=== PATIENT | female | born 1965 | race Caucasian/White ===

== ENCOUNTER → 2017-12-28 16:10 | Outpatient (CLI) | payer OTHER, SELFPAY ==
--- NOTE | 2017-12-28 16:10 | DT_ITS ---
This patient was seen during an EMR downtime December 28, 2017 - January 04, 2018. This patient may have a combination of paper and electronic documentation or all paper documentation. All documentation is viewable within the e-chart portion of [employer] for each patient visit.
[2018-01-03 03:39] LABS: Hematocrit 44.2 % (37-47); Hemoglobin 14.4 g/dl (12.0-15.0); Mean Corp Hgb Conc 32.6 g/gl (32-36); Mean Corpuscular Hgb 28.9 pg (27.0-32.0); Mean Corpuscular Volume 88.8 fL (81-99); Mean Platelet Vol. 10.2 fl (6.2-12.0); Platelet Count 290 K/mm3 (150-450); RBC Distribution Width CV 16.4 % (11.6-14.6); RBC Distribution Width SD 52.9 fl (35.1-43.9); Red Blood Count 4.98 M/mm3 (4.2-5.4)
[2018-01-03 03:40] LABS: Absolute Lymphocyte Count 3.06 X10^3/ul (0.83-4.51); Absolute Neutrophil Count 3.9 X10^3/uL (2.0-7.7); Basophil# 0.03 X10^3/uL; Basophil% 0.4 % (0-1); Eosinophil# 0.23 X10^3/uL; Eosinophils% 2.9 % (0-5); Lymphocyte # 3.06 X10^3/ul (4.0); Lymphocyte % 38.3 % (19-41); Monocyte# 0.82 X10^3/uL; Monocyte% 10.3 % (0-10); Neutrophil # 3.85 X10^3/uL (2.7-7.7); POSITIVE COUNT NO; POSITIVE DIFFERENTIAL NO; POSITIVE MORPHOLOGY NO
[2018-01-03 03:41] LABS: BUN 9 mg/dL (7-18); BUN/Creat Ratio 11.5 RATIO (10-20); Creatinine, Serum 0.78 mg/dL (0.55-1.02); EST Glomerular Filtration Rate 82 mL/min (>60); Est Glom Filt Rate - Afr Amer 99 mL/min (>60); Glucose 84 mg/dL (74-106)
[2018-01-03 03:43] LABS: Calcium,Total 8.9 mg/dL (8.5-10.1)
[2018-01-03 03:45] LABS: Anion Gap 9 (5-15); Chloride 104 mmol/L (98-107); Potassium 3.2 mmol/L (3.5-5.1); Sodium Level 142 mmol/L (136-145)
== END ==
PROVIDERS: Family Provider Family Medicine; PCP Family Medicine; Visit Provider Family Medicine
DX: I10 Essential (primary) hypertension (principal); R60.0 Localized edema
CPT/HCPCS: 36415; 80048; 80061; 84443; 85025

== ENCOUNTER → 2018-01-21 08:01 | Outpatient (CLI) | payer OTHER, SELFPAY ==
[2018-01-21 10:44] LABS: Anion Gap 6 (5-15); BUN 8 mg/dL (7-18); BUN/Creat Ratio 9.3 RATIO (10-20); Calcium,Total 8.6 mg/dL (8.5-10.1); Chloride 107 mmol/L (98-107); Creatinine, Serum 0.86 mg/dL (0.55-1.02); EST Glomerular Filtration Rate 74 mL/min (>60); Est Glom Filt Rate - Afr Amer 89 mL/min (>60); Glucose 90 mg/dL (74-106); Potassium 3.6 mmol/L (3.5-5.1); Sodium Level 140 mmol/L (136-145)
== END ==
PROVIDERS: Family Provider Family Medicine; PCP Family Medicine; Visit Provider Family Medicine
DX: I10 Essential (primary) hypertension (principal)
CPT/HCPCS: 36415; 80048

== ENCOUNTER → 2018-04-02 11:21 | Outpatient (CLI) | payer SELFPAY | PROVIDERS: Family Provider Nurse Practitioner; PCP Nurse Practitioner; Visit Provider Nurse Practitioner | DX: M79.605 Pain in left leg (principal) | CPT/HCPCS: 93971 ==

== ENCOUNTER → 2018-04-09 12:54 | Outpatient (CLI) | payer OTHER, SELFPAY ==
--- NOTE | 2018-04-09 12:56 | RAD_ITS ---
STUDY: X-RAY -LEFT FOOT CLINICAL: Left leg and foot swelling. TECHNIQUE: 3 view(s) of the foot. COMPARISON: None. FINDINGS: There is a small posterior calcaneal enthesophyte. Normal visualized subtalar, talonavicular, calcaneocuboid, tarsal and tarsometatarsal articulations. Normal metatarsi. Normal metatarsophalangeal joint of the great toe. Normal tibial and fibular sesamoid bones. There is a bipartite tibial sesamoid. Normal interphalangeal joint of the great toe. Normal phalanges of the great toe. Normal second through fifth metatarsophalangeal joints. Normal interphalangeal joints and phalanges of the lesser toes. There is soft tissue swelling. RAD/Foot min 3 Views IMPRESSION: Soft tissue swelling. Small calcaneal enthesophyte. Electronically Signed: Fredrick Roberson MD at 15:37 EDT Tel , Service support ,
--- NOTE | 2018-04-09 12:56 | RAD_ITS ---
STUDY: X-RAY - LEFT ANKLE REASON FOR EXAM: Left leg swelling. TECHNIQUE: 3 view(s) of the ankle. COMPARISON: None. FINDINGS: Normal visualized distal tibia and fibula. Normal medial and lateral malleoli. Normal tibiotalar articulation and ankle mortise. There is a small posterior calcaneal enthesophyte. The visualized subtalar, talonavicular, calcaneocuboid and tarsal articulations are normal. There is soft tissue swelling of the left lower leg. RAD/Ankle min 3 Views IMPRESSION: Soft tissue swelling. Small calcaneal enthesophyte. Electronically Signed: Fredrick Roberson MD at 15:37 EDT Tel , Service support ,
--- NOTE | 2018-04-09 12:56 | RAD_ITS ---
STUDY: X-RAY - LEFT KNEE REASON FOR EXAM: Left leg swelling. TECHNIQUE: 4 view(s) of the knee. COMPARISON: None. FINDINGS: Normal visualized distal femur. Normal visualized proximal tibia and fibula. Normal proximal tibiofibular articulation. Normal medial femorotibial compartment. Normal lateral femorotibial compartment. Normal patellofemoral articulation. There is soft tissue swelling in the left lower leg. RAD/Knee 4 or More Views IMPRESSION: Soft tissue swelling. Otherwise, unremarkable x-ray examination of the left knee. Electronically Signed: Fredrick Roberson MD at 15:30 EDT Tel , Service support ,
== END ==
PROVIDERS: Family Provider Nurse Practitioner; PCP Nurse Practitioner; Visit Provider Nurse Practitioner
DX: M79.89 Other specified soft tissue disorders (principal)
CPT/HCPCS: 73564; 73610; 73630

== ENCOUNTER 2019-03-10 15:43 | Emergency (ER) | payer MEDICAID, SELFPAY ==
[2019-03-10 15:44] VITALS: BP 133/77; PULSE 93; RESP 18; TEMP 36.6; O2SAT 100; BMI 19.4
--- NOTE | 2019-03-10 16:00 | EKG12_ITS ---
Test Reason : Blood Pressure : / mmHG Vent. Rate : 077 BPM Atrial Rate : 077 BPM P-R Int : 152 ms QRS Dur : 086 ms QT Int : 374 ms P-R-T Axes : 082 053 071 degrees QTc Int : 423 ms Normal sinus rhythm Normal ECG Confirmed by TOM SILVESTRE, JOSEPH ([id number]), acquisition editor OSWALD BARRAZA ([id number]) on 03/14/2019 1:06:20 PM Referred By: MARLEY Confirmed By:FCO SANTOS MD
--- NOTE | 2019-03-10 16:00 | CT_ITS ---
STUDY: CT BRAIN WITHOUT CONTRAST REASON FOR EXAM: Female, 54 years old. Headache RADIATION DOSAGE (If Supplied By Facility): CTDIvol = ( 44.99 ) mGy, DLP = ( 694.87 ) mGycm TECHNIQUE: Transaxial CT imaging of the brain was performed without administration of intravenous contrast material. Individualized dose optimization techniques were used for this CT. COMPARISON: No relevant priors. FINDINGS: Normal soft tissue structures. Normal calvarium. Normal size ventricles and extra-axial spaces for the patient's age. Normal white matter tracts of the cerebral hemispheres. There are bilateral lacunar infarcts of the basal ganglia and thalami. Normal brainstem. Normal cerebellum. There is no intracranial hemorrhage. There are no findings of an acute ischemic infarction. Normal visualized paranasal sinuses. CT/Brain/Head without Contrast IMPRESSION: Small bilateral lacunar infarcts of the basal ganglia. Otherwise normal. Electronically Signed: Sanya Lino MD at 16:46 EDT , Service support ,
--- NOTE | 2019-03-10 16:08 | ED.VIS.GEN ---
History of Present Illness Chief Complaint: Syncope Narrative: Patient presenting secondary to a near syncopal episode. Patient reports that she was working outdoors today. 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 She states that it was associated with minimal amount of abdominal cramping, as well as an associated headache. Patient states that she then felt numb in her bilateral arms, and felt that her thumbs were twitching. She states she was lightheaded and almost passed out but did not completely pass out. Patient denies that she was having any sort of chest pain or shortness of breath. She denies prior similar episodes of this. She denies any history of DVT or PE or any risk factors of such. Currently the patient states that she just has a mild headache associated with this with no visual changes numbness or weakness. Patient does have an underlying history of hypertension, no history of cardiac arrhythmia. Review of systems otherwise negative. Past Medical History - Allergies and Home Meds Allergies/Adverse Reactions: Allergies No Known Allergies Allergy (Verified 03/10/19 15:47) Primary Care Physician: Maite Hollins NP-C [Primary Care Provider] - Past Medical History: - - Hypertension Lives: Spouse/ Significant Other Smoking Status: Current every day smoker Alcohol: None Drugs: None Review of Systems All systems negative except as indicated Eyes: Denies: Visual changes - bilaterally Cardiovascular: Denies: Chest pain Gastrointestinal: Reports: Nausea. Denies: Vomiting Neurological: Reports: Headache, Parasthesia Physical Exam Vital Signs/Narrative: Vital Signs Temp Pulse Resp BP Pulse Ox 03/10/19 15:44 97.9 F 93 18 133/77 H 100 General: Well nourished, Well developed, No Acute Distress Head: Normocephalic, Atraumatic Eyes: Perrl, EOMI ENT: Moist mucous membranes, No rhinorrhea Neck: Supple, Nontender Cardiovascular: Regular rate, Regular rhythm, No murmurs Respiratory: No distress, CTA bilaterally, Chest nontender Abdomen: Soft, Nontender, Nondistended, Normal bowel sounds Back: Nontender, Normal Inspection Extremities: Nontender, No edema Skin: Normal color, No rash Neurological: Alert, Oriented x3, Cranial nerves II-XII grossly intact, Normal Strength, Normal Sensation Psychological: Normal affect, Normal Mood Diagnostic/Tx/Re-eval - EKG Initial EKG Interpretation: - - Sinus rhythm at [address] segments normal T waves no evidence of acute ischemia or arrhythmia. Normal AK and QTc intervals. - Medical Decision Making Patient presented secondary to a near syncopal episode associated with some overheating. CBC chemistry troponin were unremarkable. CT brain was performed which showed old basal ganglia infarcts but nothing new. Patient's EKG shows no signs of arrhythmia or ischemia. Telemetry monitoring was also negative for any sort of arrhythmia. Patient is negative per the [place] syncope risk scale. Patient likely had an episode where she was overheated. I do not believe that she requires admission or observation. She was given a liter of fluid, had improvement, and was discharged. ED Disposition - Plan for ED Patient: Disposition: Home or Assisted Living Diagnosis: Near syncope Instructions: NEAR SYNCOPE, Vasovagal Referrals: Maite Hollins NP-C [Primary Care Provider] - 1 Week
[2019-03-10] MEDS: 0.9% Normal Saline 1,000 ML 1000 ML IV (16:12)
[2019-03-10 16:20] LABS: Absolute Lymphocyte Count 2.25 X10^3/uL (0.83-4.51); Absolute Neutrophil Count 7.8 X10^3/uL (2.0-7.7); Basophil# 0.03 X10^3/uL; Basophil% 0.3 % (0-1); Eosinophil# 0.12 X10^3/uL; Eosinophils% 1.1 % (0-5); Hematocrit 40.5 % (37-47); Hemoglobin 13.2 g/dL (12.0-15.0); Lymphocyte # 2.25 X10^3/ul (4.0); Lymphocyte % 20.5 % (19-41); Mean Corp Hgb Conc 32.6 g/dL (32-36); Mean Corpuscular Hgb 28.6 pg (27.0-32.0); Mean Corpuscular Volume 87.9 fL (81-99); Monocyte# 0.77 X10^3/uL; NRBC Flagged by Analyzer 0 % (0-5); Neutrophil # 7.79 X10^3/uL (2.7-7.7); Neutrophil % 70.7 % (47-70); Platelet Count 230 K/mm3 (150-450); RBC Distribution Width SD 51.8 fl (35.1-43.9); Red Blood Count 4.61 M/mm3 (4.2-5.4)
[2019-03-10 16:34] LABS: Anion Gap 5 (5-15); BUN 12 mg/dL (7-18); BUN/Creat Ratio 13.5 RATIO (10-20); Calcium,Total 8.7 mg/dL (8.5-10.1); Chloride 109 mmol/L (98-107); Creatinine, Serum 0.89 mg/dL (0.55-1.02); EST Glomerular Filtration Rate 70 mL/min (>60); Est Glom Filt Rate - Afr Amer 85 mL/min (>60); Estimated Creatinine Clearance 60.54 ml/min; Glucose 93 mg/dL (74-106); Potassium 3.7 mmol/L (3.5-5.1); Sodium Level 141 mmol/L (136-145)
[2019-03-10 17:39] VITALS: BP 143/86; PULSE 78; RESP 16; RESP 18; O2SAT 100
== END 2019-03-10 17:40 | disposition home or self-care (01) ==
PROVIDERS: Emergency Provider Emergency Medicine; Family Provider Clinical Nurse Specialist; PCP Clinical Nurse Specialist
DX: R55 Syncope and collapse (principal); I10 Essential (primary) hypertension; F17.200 Nicotine dependence, unspecified, uncomplicated; Z79.899 Other long term (current) drug therapy
CPT/HCPCS: 70450; 80048; 84484; 85025; 93005; 96360; 99284; A4216

== ENCOUNTER 2019-04-27 16:00 | Outpatient (RCR) | payer MEDICAID, SELFPAY ==
--- NOTE | 2019-04-21 09:32 | HP.OTEVAL_ITS ---
Patient's Visit Information SHELIA FALLON is a 54 year old F, referred to Occupational Therapy by BIRDIE BROWNING, with a diagnosis of primary lymphedema. Date of Evaluation: 04/21/19 Occupational Therapist: Anamika Goldberg, MARTIN/Kylie, CHT - Subjective Subjective: This 54-year-old female was seen for OT for LE lymphedema. Pt states she has had swelling in her ankles for 30+ years since she was . Pt has pain behind her knee. pt is using thigh high compression socks 30-40 mmhg. pt states she continues to have pain behind her knee with use of the compression socks. pt would like to learn more on how to mtg her lymphedema. - Pain left LE 5 Pain Intensity Range: 8 - Lower Limb Functional Index Lower Extremity Functional Score: 58 - Goals Demonstrate a 20% reduction in edema by d/c: Yes Demonstrate adequate knowledge of self-massage by 2nd week: Yes Demonstrate adequate knowledge skin care/prec by 2nd week: Yes Demonstrate adequate knowledge therapeutic exercises by d/c: Yes Select approp compression garment w/donning/care/wear by d/c: Yes Voice need to replace compression garment every 4-6mo by dc: Yes - Rehabilitation General Assessment: Pt demo with symptoms of primary lymphdema in bilateral LE. left LE is becoming more involved with edema and pain at the back of her knee. THis is limiting pt with daily work and ADLs tasks. Pt would benefit from skilled OT services 2-3 visits to ed. pt on dx, tx and home mtg ideas that she can feel comfortable in her self mtg. Pt is using thigh high compression socks 30-40mmhg. Today pt was ed. on lymphedema ex, use of compression socks, skin car e and home mtg. pt demo understanding and agree to POC. Rehabilitation Potential: Good - Anticipated Interventions Anticipated Interventions: Manual Lymph Drainage, Education re Life-long lymphedema Management, Education re Skin Care and Precautions, Education re Self Massage Techniques, Education re Correct Donning Tech,Care&Wearing Sched Comp Garments, Home Program - Visit Plan Frequency: 1x/Week Duration: 3 Weeks TEXT: Thank you for the opportunity to evaluate your patient. For Medicare and Medicare HMO plans, please review the plan of care and approve it. It will need to be FAXED BACK to us at [phone] for Medicare purposes. Please let me know if there are questions or concerns regarding this plan of care. Physician Signature: Date:
--- NOTE | 2019-04-27 16:43 | HP.OTEVAL_ITS ---
Patient's Visit Information SHELIA FALLON is a 54 year old F, referred to Occupational Therapy by BIRDIE BROWNING, with a diagnosis of primary lymphedema. Date of Evaluation: 04/21/19 Occupational Therapist: Anamika Goldberg, MARTIN/Kylie, CHT - Subjective Subjective: This 54-year-old female was seen for OT for LE lymphedema. Pt states she has had swelling in her ankles for 30+ years since she was . Pt has pain behind her knee. pt is using thigh high compression socks 30-40 mmhg. pt states she continues to have pain behind her knee with use of the compression socks. pt would like to learn more on how to mtg her lymphedema. - Pain left LE 5 Pain Intensity Range: 8 - Lymphedema (Circumferential Measure) Mid-foot: right 21cm left 22cm Ankle: right 25.5cm left 27.5cm Lower calf: right 21.5cm left 26cm Largest calf: right 31cm left 31cm Below knee: right 28cm left 28cm - Lower Limb Functional Index Lower Extremity Functional Score: 58 - Goals Demonstrate a 20% reduction in edema by d/c: Yes Demonstrate adequate knowledge of self-massage by 2nd week: Yes Demonstrate adequate knowledge skin care/prec by 2nd week: Yes Demonstrate adequate knowledge therapeutic exercises by d/c: Yes Select approp compression garment w/donning/care/wear by d/c: Yes Voice need to replace compression garment every 4-6mo by dc: Yes - Rehabilitation General Assessment: Pt demo with symptoms of primary lymphdema in bilateral LE. left LE is becoming more involved with edema and pain at the back of her knee. THis is limiting pt with daily work and ADLs tasks. Pt would benefit from skilled OT services 2-3 visits to ed. pt on dx, tx and home mtg ideas that she can feel comfortable in her self mtg. Pt is using thigh high compression socks 30-40mmhg. Today pt was ed. on lymphedema ex, use of compression socks, skin care and home mtg. pt demo understanding and agree to POC. Rehabilitation Potential: Good - Anticipated Interventions Anticipated Interventions: Manual Lymph Drainage, Education re Life-long lymp hedema Management, Education re Skin Care and Precautions, Education re Self Massage Techniques, Education re Correct Donning Tech,Care&Wearing Sched Comp Garments, Home Program - Visit Plan Frequency: 1x/Week Duration: 3 Weeks TEXT: Thank you for the opportunity to evaluate your patient. For Medicare and Medicare HMO plans, please review the plan of care and approve it. It will need to be FAXED BACK to us at [phone] for Medicare purposes. Please let me know if there are questions or concerns regarding this plan of care. Physician Signature: Date:
--- NOTE | 2019-07-29 11:06 | HP.OTDCSUM ---
HP - OT D/C Summary It has been my pleasure to treat SHELIA FALLON under orders from BIRDIE BROWNING, for the diagnosis of primary lymphedema for a total of 2 visit(s). Please see the following information for a summary of their discharge status. - Objective Objective/Function: right foot 21cm/left 22cm. right ankle 25.5cm left 26.5cm. right Lower calf 21.5cm left 24.5cm. right calf 31cm left 31cm. right below knee 28cm left 28cm - Goals Patient Goals: Decrease Pain, Learn how to Manage Lymphedema, Learn how to Apply Compression Stockings Demonstrate a 20% reduction in edema by d/c: Yes Demonstrate adequate knowledge of self-massage by 2nd week: Yes Demonstrate adequate knowledge skin care/prec by 2nd week: Yes Demonstrate adequate knowledge therapeutic exercises by d/c: Yes Select approp compression garment w/donning/care/wear by d/c: Yes Voice need to replace compression garment every 4-6mo by dc: Yes - Plan Plan: cont with HEP pt to call in three weeks - D/C Information If there are questions or concerns regarding this patient's occupational therapy, please fell free to call me at [phone]. Thank you for the referral of this patient. Sincerely, Anamika Goldberg, OTR/L, CHT
== END 2019-04-27 19:00 | disposition home or self-care (01) ==
LOC: OT 16:00
PROVIDERS: Family Provider Clinical Nurse Specialist; PCP Clinical Nurse Specialist
DX: I89.0 Lymphedema, not elsewhere classified (principal)
CPT/HCPCS: 97166; 97530

== ENCOUNTER → 2022-07-11 | Outpatient (CLI) | payer MEDICAID, SELFPAY ==
--- NOTE | 2022-07-11 09:32 | VDLE_ITS ---
Reason For Study: LEG SWELLING RIGHT LEFT CFV is compressible, spontaneous, phasic, CFV is compressible, spontaneous, phasic, competent and demonstrates normal competent, and demonstrates normal augmentation. augmentation. FV is compressible, spontaneous, phasic, FV is compressible, spontaneous, phasic, competent and demonstrates normal competent and demonstrates normal augmentation. augmentation. POP V is compressible, spontaneous, phasic, POP V is compressible, spontaneous, phasic, competent and demonstrates normal competent and demonstrates normal augmentation. augmentation. T/P Trunk is compressible. T/P Trunk is compressible. PTV is compressible. PTV is compressible. RT PerV is compressible. LT PerV is compressible. SFJ is competent and measures 0.44 x 0.44 cm. SFJ is INCOMPETENT and measures 0.59 x 0.62 GSV proximal thigh measures 0.30 x 0.35 cm. cm. GSV at knee measures 0.18 x 0.18 cm. GSV proximal thigh measures 0.28 x 0.35 cm. GSV is competent throughout. GSV at knee measures 0.21 x 0.22 cm. SSV proximal calf is competent and measures GSV above knee is INCOMPETENT for greater 0.30 x 0.33 cm. than 0.5 seconds. Vein wall thickening noted throughout RT SSV. GSV below knee is competent. Procedure SSV proximal calf is competent and measures Exam performed in department. 0.34 x 0.36 cm. This is a venous duplex using B-mode, color Vein wall thickening noted throughout LT SSV. flow and spectral Doppler. The exam was diagnostic. VL/Venous Duplex US - Jaxon Extrem Interpretation Summary Deep veins of the bilateral lower extremities are patent and compressible segme ntally. There is no evidence of bilateral lower extremity deep vein thrombosis. The bilateral great saphenous veins appear patent and compressible segmentally. Reflux present in left saphenofemoral junction, left great saphenous above the knee. Small saphenous veins bilateral with wall thickening Ordering Physician: Shanna Kay Referring Physician: Melissa Hadley Performed By: Wayne Dawkins, RVT
== END | disposition home or self-care (01) ==
LOC: CVS 09:31
PROVIDERS: PCP Family Medicine; Visit Provider Physician Assistant
DX: M79.89 Other specified soft tissue disorders (principal)
CPT/HCPCS: 93970

== ENCOUNTER 2022-11-11 06:24 | Day surgery (SDC) | payer OTHER, MEDICAID, SELFPAY ==
[2022-11-10 07:33] VITALS: BMI 18.2
[2022-11-11 06:39] LABS: Absolute Lymphocyte Count 2.22 X10^3/uL (0.83-4.51); Absolute Neutrophil Count 4.2 X10^3/uL (2.0-7.7); Basophil# 0.02 X10^3/uL; Basophil% 0.3 % (0-1); Eosinophil# 0.29 X10^3/uL; Eosinophils% 3.9 % (0-5); Hematocrit 45.4 % (37-47); Hemoglobin 14.6 g/dL (12.0-15.0); Lymphocyte # 2.22 X10^3/ul (0.83-4.51); Lymphocyte % 29.6 % (19-41); Mean Corp Hgb Conc 32.2 g/dL (32-36); Mean Corpuscular Hgb 28.5 pg (27.0-32.0); Mean Corpuscular Volume 88.5 fL (81-99); Mean Platelet Vol. 9.3 fl (6.2-12.0); Monocyte# 0.77 X10^3/uL; Monocyte% 10.3 % (0-10); NRBC Flagged by Analyzer 0 % (0-5); Neutrophil # 4.17 X10^3/uL (2.7-7.7); Neutrophil % 55.6 % (47-70); Platelet Count 269 K/mm3 (150-450); RBC Distribution Width CV 16.4 % (11.6-14.6); RBC Distribution Width SD 53.1 fl (35.1-43.9); Red Blood Count 5.13 M/mm3 (4.2-5.4); White Blood Count 7.5 K/mm3 (4.4-11.0)
[2022-11-11 06:52] LABS: Anion Gap 3 (5-15); BUN 17 mg/dL (7-18); BUN/Creat Ratio 23.8 RATIO (10-20); Calcium,Total 8.9 mg/dL (8.5-10.1); Chloride 111 mmol/L (98-107); Creatinine, Serum 0.71 mg/dL (0.55-1.02); EST Glomerular Filtration Rate 89 mL/min (>60); Est Glom Filt Rate - Afr Amer 108 mL/min (>60); Estimated Creatinine Clearance 70.97 ml/min; Glucose 104 mg/dL (74-106); Potassium 3.9 mmol/L (3.5-5.1); Sodium Level 138 mmol/L (136-145)
--- NOTE | 2022-11-11 10:12 | OP.PCM_ITS ---
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 She presents now for venogram to assess the central system for obstruction. Description of procedure: Upon obtaining form consent and verification correct patient procedure site patient was taken to the [facility] where she was positioned prepped and draped in usual sterile fashion. Timeout performed and conscious sedation administered with Versed and fentanyl. Skin over the left common femoral vein was anesthetized 1% lidocaine and the vessel accessed and retrograde fashion under ultrasound guidance with a micropuncture needle and wire. This then exchanged for micropuncture sheath through which injection ilio caval venogram was performed which revealed satisfactory positioning with no extravasation or dissection. There is also revealed widening of the common iliac vein which was suggestive of compression. Next the starter wire was advanced and the micropuncture sheath exchanged out for a 9 [place] sheath. Through this a [employer] wire is advanced in the vena cava and intravascular ultrasound probe advanced to the vena cava and recorded pullback of the vena cava, left common iliac, left external iliac vein was performed. This revealed significant compression of the inferior vena cava just above the confluence as well as the superior aspect of the left common iliac vein. Next the skin overlying the right common femoral vein was anesthetized 1% lidocaine and the vessel accessed under ultrasound guidance with a micropuncture needle and wire. This was then exchanged for micropuncture sheath through which hand-injection ilio caval venogram was performed which showed small caliber vessels and some evidence of diameter compromise at the superior aspect just below the confluence. Through the micropuncture sheath a starter wire advanced the micropuncture sheath exchanged out for a 9 [place] sheath. Through the 9 [place] sheath intravascular sound probe was advanced in the vena cava and recorded pullback performed. This confirmed compression at the ileal caval confluence but otherwise revealed no significant compression within the right iliac system. Patient was then heparinized and allowed to circulate 3 minutes. In order to treat the IVC confluence bilateral common iliac vein stents were required so the vessels were first predilated with a [employer] XXL angioplasty balloons. A 14 x 40 was selected for the right and a 16 x 40 selected for the left, each of which was advanced in the position and inflated to nominal simultaneously and then deflated withdrawn. Next a [employer] 18 x 90 Wallstent was advanced in the position via the left femoral access sheath. A [employer] 16 x 90 Wallstent was advanced via the right femoral access sheath and the tube aligned in the inferior aspect of the inferior vena cava with satisfactory coverage of the compressed area above and below. These were then deployed simultaneously and postdilated with the XXL balloons; 14 mm for the right 16 for the left. These were inflated to nominal along the entirety of the length of the stents and the balloon withdrawn. Intravascular sound then readvanced via the right femoral access sheath which revealed satisfactory stent to wall apposition throughout with resolution of the inferior vena cava compression. Ultrasound was then withdrawn and advanced via the left femoral sheath and again ilio caval recording performed which again confirmed resolution of the IVC compression as well as the left common iliac vein compression with good wall apposition and no residual compression. Wires were then withdrawn and a 2-0 silk U stitch placed in the access sites after which the sheaths were withdrawn and then a pressure held for 5 minutes. Patient was then awakened and sedation taken the recovery room anticipated discharged home after bedrest. Grafts/Implants Used: Left- 18 x 90 WallStent Right 16 x 90 Wallstent
== END 2022-11-11 11:45 | disposition home or self-care (01) ==
PROVIDERS: PCP Nurse Practitioner Family; Referring Provider Surgery Trauma Surgery; Visit Provider Surgery Trauma Surgery
DX: I87.2 Venous insufficiency (chronic) (peripheral) (principal); I87.1 Compression of vein; Z79.899 Other long term (current) drug therapy; Z87.891 Personal history of nicotine dependence
CPT/HCPCS: 36010; 36415; 37238; 37252; 37253; 75825; 76937; 80048; 85025; 99152; 99153; C1725; C1753; C1769; C1894; J7040; Q9967; C1876

== ENCOUNTER → 2023-01-13 | Outpatient (CLI) | payer OTHER, MEDICAID, SELFPAY ==
--- NOTE | 2023-01-13 07:46 | VDLE_ITS ---
Reason For Study: swelling RIGHT LEFT GSV is normal. GSV is normal. CFV is compressible, spontaneous, phasic, CFV is compressible, spontaneous, phasic, competent and demonstrates normal competent, and demonstrates normal augmentation. augmentation. FV is compressible, spontaneous, phasic, FV is compressible, spontaneous, phasic, competent and demonstrates normal competent and demonstrates normal augmentation. augmentation. POP V is compressible, spontaneous, phasic, POP V is compressible, spontaneous, phasic, competent and demonstrates normal competent and demonstrates normal augmentation. augmentation. T/P Trunk is compressible. T/P Trunk is compressible. PTV is compressible. PTV is compressible. RT PerV is compressible. LT PerV is compressible. Ext Iliac V is compressible, spontaneous, Ext Iliac V is compressible, spontaneous, phasic, competent and demonstrates normal phasic, competent and demonstrates normal augmentation. augmentation. Vein wall thickening noted throughout SSV. Vein wall thickening noted throughout SSV. Procedure Exam performed in department. The exam was diagnostic. VL/Venous Duplex US - Jaxon Extrem Interpretation Summary Deep veins of the bilateral lower extremities are patent and compressible segme ntally. There is no evidence of bilateral lower extremity deep vein thrombosis. The bilateral great saphenous veins appear patent and compressible segmentally. Ordering Physician: Shanna Kay Performed By: Curtis Avendano RVManjeet
--- NOTE | 2023-01-13 07:46 | AAVD_ITS ---
Reason For Study: S/P angioplasty with candida iliac stents Inferior Vena Cava Proximal inferior vena cava measures .91 x 1.07 cm. in the cross-sectional axis. Proximal inferior vena cava measures .73 cm. in the longitudinal axis. Mid inferior vena cava measures .93 x 1.05 cm. in the cross-sectional axis. Mid inferior vena cava measures .81 cm. in the longitudinal axis. Distal inferior vena cava measures 1.13 x 1.28 cm. in the cross-sectional axis. Distal inferior vena cava measures 1.03 cm. in the longitudinal axis. The inferior vena cava has spontaneous, phasic flow throughout. Left Common Iliac Vein Left common iliac vein measures .95 x 1.00 cm. in the cross-sectional axis. Left common iliac vein measures .91 cm. in the longitudinal axis. The left common iliac vein has spontaneous, phasic flow throughout. Right Common Iliac Vein Right common iliac vein measures 1.07 x 1.16 cm. in the cross-sectional axis. Right common iliac vein measures 1.28 cm. in the longitudinal axis. The right common iliac vein has spontaneous, phasic flow throughout. VL/Abd Aortic/IVC Duplex scan Interpretation Summary Patent IVC and bilateral iliac vein stents with normal flow pattern. Ordering Physician: Shanna Kay Performed By: Curtis Avendano RVT
== END | disposition home or self-care (01) ==
LOC: CVS 07:45
PROVIDERS: PCP Nurse Practitioner Family; Referring Provider Physician Assistant; Visit Provider Physician Assistant
DX: I87.9 Disorder of vein, unspecified (principal); R60.0 Localized edema; Z48.812 Encounter for surgical aftercare following surgery on the circulatory system
CPT/HCPCS: 93970; 93978

== ENCOUNTER 2023-02-11 06:53 | Day surgery (SDC) | payer OTHER, MEDICAID, SELFPAY ==
[2023-02-10 07:03] VITALS: BMI 18.2
[2023-02-11 07:04] LABS: Absolute Lymphocyte Count 2.59 X10^3/uL (0.83-4.51); Absolute Neutrophil Count 3.8 X10^3/uL (2.0-7.7); Basophil# 0.03 X10^3/uL; Basophil% 0.4 % (0-1); Eosinophil# 0.35 X10^3/uL; Eosinophils% 4.6 % (0-5); Hematocrit 43.6 % (37-47); Hemoglobin 13.8 g/dL (12.0-15.0); Lymphocyte # 2.59 X10^3/ul (0.83-4.51); Lymphocyte % 34.1 % (19-41); Mean Corp Hgb Conc 31.7 g/dL (32-36); Mean Corpuscular Hgb 28.3 pg (27.0-32.0); Mean Corpuscular Volume 89.3 fL (81-99); Mean Platelet Vol. 9.3 fl (6.2-12.0); Monocyte# 0.84 X10^3/uL; Monocyte% 11.1 % (0-10); NRBC Flagged by Analyzer 0 % (0-5); Neutrophil # 3.76 X10^3/uL (2.7-7.7); Neutrophil % 49.5 % (47-70); Platelet Count 269 K/mm3 (150-450); RBC Distribution Width CV 16.3 % (11.6-14.6); RBC Distribution Width SD 53.1 fl (35.1-43.9); Red Blood Count 4.88 M/mm3 (4.2-5.4); White Blood Count 7.6 K/mm3 (4.4-11.0)
[2023-02-11 07:19] LABS: Anion Gap 3 (5-15); BUN 9 mg/dL (7-18); BUN/Creat Ratio 10.8 RATIO (10-20); Chloride 110 mmol/L (98-107); Creatinine, Serum 0.83 mg/dL (0.55-1.02); EST Glomerular Filtration Rate 75 mL/min (>60); Est Glom Filt Rate - Afr Amer 91 mL/min (>60); Estimated Creatinine Clearance 60.51 ml/min; Glucose 96 mg/dL (74-106); Potassium 3.9 mmol/L (3.5-5.1); Sodium Level 140 mmol/L (136-145)
--- NOTE | 2023-02-11 09:22 | PCM.OPRPT ---
Report of Operation Date of Procedure: 02/11/23 Pre-Operative Diagnosis: venous insufficiency, left lower extremity Post-Operative Diagnosis: same Surgery/Procedure Performed:: left great saphenous vein ablation, radio frequency Surgeon: David Da Silva Type of Anesthesia: Local and Sedation,Conscious Estimated Blood Loss (mL): 1 Description of Procedure: HPI: Patient is a 57-year-old female with symptoms of chronic lower extremity venous insufficiency which has been refractory to compression therapy. She previously underwent iliac vein stenting for significant compression. She has had improvement in her symptoms but continues to have particular lower leg pain and edema at the end of her working day which significant limits her activity. She was found to have reflux throughout the left great saphenous vein she presents now for ablation. Description of procedure: Upon obtaining informed consent and verification correct patient procedure site patient in the [facility] where she was positioned prepped and draped in usual fashion. Time was performed conscious sedation was administered with Versed and fentanyl. The great saphenous vein was evaluated ultrasound and found to be satisfactory for access at the knee. Skin was anesthetized 1% lidocaine and the vessel accessed in retrograde fashion with a micropuncture needle wire. This then exchanged for micropuncture sheath through which the starter wire for the ablation sheath was advanced and the micropuncture changed for the 7 [place] ablation sheath. Through the ablation sheath a [employer] radiofrequency ablation probe was advanced under ultrasound guidance and positioned just below the saphenofemoral junction. Longitudinal view was obtained and measurement performed from the saphenofemoral junction down to the catheter and confirmed to be 2.5 cm. Next tumescent solution was injected along the course of the saphenous vein with satisfactory infusion encircling the entirety of the length of vein to be treated. The measurement from the saphenofemoral junction to the probe was again confirmed measured in the ablation device activated across the length of the saphenous vein. After completing treatment the sheath and catheter withdrawn and manual pressure held for 2 minutes after which satisfactory stasis noted. Dry sterile dressing and David wrap were then applied and the patient was awakened from sedation taken recovery room with dissipate discharge home.
== END 2023-02-11 10:05 | disposition home or self-care (01) ==
PROVIDERS: PCP Nurse Practitioner Family; Referring Provider Surgery Trauma Surgery; Visit Provider Surgery Trauma Surgery
DX: I87.2 Venous insufficiency (chronic) (peripheral) (principal); R60.0 Localized edema; I83.92 Asymptomatic varicose veins of left lower extremity; M79.662 Pain in left lower leg; Z79.82 Long term (current) use of aspirin; Z79.899 Other long term (current) drug therapy
CPT/HCPCS: 36415; 36475; 80048; 85025; 99152; 99153; C1888; C1894; J7030; J7040

== ENCOUNTER → 2023-02-18 | Outpatient (CLI) | payer OTHER, MEDICAID, SELFPAY ==
--- NOTE | 2023-02-18 09:49 | VDLE_ITS ---
Reason For Study: S/P Lt above knee GSV ablation RIGHT LEFT CFV is compressible, spontaneous, phasic, GSV is DILATED and NONCOMPRESSIBLE with mixed competent and demonstrates normal intraluminal echoes from 2-3cm distal to augmentation. junction and ending at the knee. Finding is Procedure consistent wth recent EVLA procedure. GSV This is a venous duplex using B-mode, color knee to ankle is compressible. flow and spectral Doppler. CFV is compressible, spontaneous, phasic, Exam performed in department. competent, and demonstrates normal The exam was diagnostic. augmentation. FV is compressible, spontaneous, phasic, competent and demonstrates normal augmentation. POP V is compressible, spontaneous, phasic, competent and demonstrates normal augmentation. T/P Trunk is compressible. PTV is compressible. LT PerV is compressible. VL/Venous Duplex US, Unilateral Interpretation Summary Deep veins of the left lower extremity are patent and compressible segmentally. There is no evidence of left lower extremity deep vein thrombosis. Left great saphenous vein occluded consistent with recent ablation Ordering Physician: David Da Silva Referring Physician: Shefali Resendiz Performed By: Wayne Dawkins, RVT
== END | disposition home or self-care (01) ==
LOC: CVS 09:48
PROVIDERS: PCP Nurse Practitioner Family; Referring Provider Surgery Trauma Surgery; Visit Provider Surgery Trauma Surgery
DX: Z48.812 Encounter for surgical aftercare following surgery on the circulatory system (principal)
CPT/HCPCS: 93971

== ENCOUNTER → 2023-11-13 | Outpatient (CLI) | payer MEDICAID, SELFPAY ==
--- NOTE | 2023-11-13 07:51 | AAVD_ITS ---
Reason For Study: HX BLE CIV Stents Inferior Vena Cava Proximal inferior vena cava measures 1.66 x 1.91 cm. in the cross-sectional axis. Proximal inferior vena cava measures 2.19 cm. in the longitudinal axis. Mid inferior vena cava measures 0.99 x 1.49 cm. in the cross-sectional axis. Mid inferior vena cava measures 0.89 cm. in the longitudinal axis. Distal inferior vena cava measures 0.87 x 1.62 cm. in the cross-sectional axis. Distal inferior vena cava measures 0.81 cm. in the longitudinal axis. The inferior vena cava has spontaneous, phasic flow throughout. Left Common Iliac Vein Left common iliac vein measures 0.89 x 0.88 cm. in the cross-sectional axis. Left common iliac vein measures 0.96 cm. in the longitudinal axis. The left common iliac vein has spontaneous, phasic flow throughout. Stent noted. Right Common Iliac Vein Right common iliac vein measures 1.08 x 1.03 cm. in the cross-sectional axis. Right common iliac vein measures 1.25 cm. in the longitudinal axis. The right common iliac vein has spontaneous, phasic flow throughout. Stent noted. Procedure Aorta IVC Iliac vasculature or bypass grafts [id number]. The exam was diagnostic. Exam performed in department. VL/Abd Aortic/IVC Duplex scan Interpretation Summary Patent inferior vena cava and bilateral iliac stents with normal venous flow pa ttern. Ordering Physician: David Da Silva Referring Physician: Shefali Resendiz Performed By: Wayne Dawkins, RVT
== END | disposition home or self-care (01) ==
LOC: CVS 07:47
PROVIDERS: PCP Nurse Practitioner Family; Referring Provider Surgery Trauma Surgery; Visit Provider Surgery Trauma Surgery
DX: Z48.812 Encounter for surgical aftercare following surgery on the circulatory system (principal); I87.2 Venous insufficiency (chronic) (peripheral)
CPT/HCPCS: 93978

== ENCOUNTER → 2023-11-19 | Outpatient (CLI) | payer MEDICAID, SELFPAY ==
--- NOTE | 2023-11-19 10:42 | RAD_ITS ---
INDICATION: dyspnea on exertion EXAMINATION/TECHNIQUE: X-RAY - XR Chest 2 Views COMPARISON: None. FINDINGS: LINES/DEVICES: None. LUNGS: Lungs symmetrically hyperexpanded with coarsened interstitium. No consolidation, edema or effusion. No pneumothorax. MEDIASTINUM AND CARDIOVASCULAR STRUCTURES: Cardiac silhouette not enlarged. Mild aortic atherosclerosis. BONES AND SOFT TISSUES: Unremarkable. RAD/Chest PA and Lateral IMPRESSION: Findings compatible with chronic obstructive pulmonary disease. No radiographic evidence of acute cardiopulmonary disease. Electronically Signed: Jax Regalado MD at 21:21 EDT ,
[2023-11-19 13:02] LABS: Thyroid Stim Hormone (TSH) 1.99 uIU/mL (0.358-3.74)
== END | disposition home or self-care (01) ==
LOC: RAD 10:37
PROVIDERS: PCP Nurse Practitioner Family; Referring Provider Internal Medicine Cardiovascular Disease; Visit Provider Internal Medicine Cardiovascular Disease
DX: R06.09 Other forms of dyspnea (principal); R00.2 Palpitations; I10 Essential (primary) hypertension
CPT/HCPCS: 36415; 71046; 84443

== ENCOUNTER → 2023-12-03 | Outpatient (CLI) | payer MEDICAID, SELFPAY | END | disposition home or self-care (01) | LOC: PSN 08:55 | PROVIDERS: PCP Nurse Practitioner Family; Referring Provider Internal Medicine Cardiovascular Disease; Visit Provider Internal Medicine Cardiovascular Disease | DX: R06.09 Other forms of dyspnea (principal) | CPT/HCPCS: 93225; 93226; 94060; 94726; 94729 ==

== ENCOUNTER → 2023-12-29 | Outpatient (CLI) | payer MEDICAID, SELFPAY ==
--- NOTE | 2023-12-29 06:36 | ECHOCS_ITS ---
Reason For Study: PAUL Procedure This was a 2D Doppler, Color Flow transthoracic echocardiogram. Technically difficult study, patient was scanned in right lateral positioning for parasternal and apical images. Contrast injection was performed. Exam performed in department. Left Ventricle Normal size and thickness. The left ventricular ejection fraction is 65 %. Normal diastology for age. Right Ventricle Normal right ventricle. Atria The left and right atria are normal. Bubble contrast study is negative for PFO/ASD. Mitral Valve Trivial mitral valve insufficiency. Tricuspid Valve Trivial tricuspid valve insufficiency. Unable to estimate RV systolic pressure due to insufficient tricuspid regurgitant envelope. Aortic Valve The aortic valve is not well visualized in the short axis view. There is no aortic stenosis. Trivial aortic valve insufficiency. Pulmonic Valve The pulmonic valve is not well visualized. Great Vessels The aortic root is not well visualized. Pericardium/Pleural No pericardial effusion. Medication 22 gauge I.V. with prn adaptor inserted into left arm. Diluted definity 1ml given slow IV push to enhance endocardial definition. Performed a rapid injection of agitated mix of 9 cc saline and 1cc air to assess for atrial septal defect. MMode/2D Measurements & Calculations LVIDd: 4.3 cm IVSd: 0.68 cm LA dimension: 3.9 cm LVIDs: 3.1 cm LVPWd: 0.80 cm FS: 26.4 % LAV(MOD-bp): 29.7 ml LVAd ap4: 25.5 cm2 SV(MOD-sp4): 51.3 ml LAV(MOD-bp) Indexed: 19.2 ml/m2 LVLd ap4: 6.4 cm LAV(MOD-sp2): 25.7 ml EDV(MOD-sp4): 82.4 ml LAV(MOD-sp4): 27.5 ml EDV(sp4-el): 86.1 ml LVAs ap4: 14.2 cm2 LVLs ap4: 5.3 cm ESV(MOD-sp4): 31.1 ml ESV(sp4-el): 32.1 ml EF(MOD-sp4): 62.3 % EF(sp4-el): 62.7 % SV(sp4-el): 53.9 ml LA A4 area: 12.0 cm2 Time Measurements MV dec time: 0.25 sec Doppler Measurements & Calculations MV E max juan: 69.1 cm/sec Lat Peak E' Juan: 9.3 cm/sec Med Peak E' Juan: 7.9 cm/sec MV A max juan: 77.7 cm/sec E/E' lat: 7.4 E/E' med: 8.8 MV E/A: 0.89 MV V2 max: 97.9 cm/sec MV P1/2t max juan: 78.0 cm/sec Ao V2 max: 106.9 cm/sec MV max P.8 mmHg MV P1/2t: 85.8 msec Ao max P.6 mmHg MV V2 mean: 54.7 cm/sec Ao V2 mean: 66.8 cm/sec MV mean P.4 mmHg MV dec slope: 266.3 cm/sec2 Ao mean P.1 mmHg MV V2 VTI: 29.4 cm MVA(P1/2t): 2.6 cm2 Ao V2 VTI: 23.5 cm AV (velocity ratio): 0.78 LV V1 max: 86.2 cm/sec PA V2 max: 106.3 cm/sec LV V1 max P.0 mmHg LV V1 mean P.4 mmHg LV V1 mean: 56.6 cm/sec LV V1 VTI: 18.5 cm ECHO/Echo Complete W/ Contrast Interpretation Summary The left ventricular ejection fraction is 65 %. Ordering Physician: Lennox Collins Referring Physician: Lennox Collins Performed By: Errol Kwon [facility]
--- NOTE | 2023-12-29 11:18 | STRESSREP ---
Stress Test Report Date: 12/29/2023 Procedure: Pharmacologic stress nuclear imaging study Indications: Dyspnea on exertion Consent: Per the patient Procedure: The patient underwent pharmacologic (Regadenoson 0.4mg ) evaluation with a peak heart rate of 83 beats per minute (51%predicted maximal heart rate) and a peak blood pressure of 163/83 mmHg. The baseline ECG demonstrated sinus rhythm. The peak pharmacologic ECG demonstrated no ischemic changes. There were no cardiac dysrhythmias pretest, during pharmacologic infusion, or recovery. There was no complaint of chest discomfort during pharmacologic infusion or recovery. The patient was injected with 11.1 millicuries of technetium 99m Cardiolite and subsequently rest SPECT Cardiolite nuclear imaging was obtained in the horizontal long, vertical long, and short axis views. The patient underwent pharmacologic (Regadenoson) evaluation. The patient was injected with 32.8 millicuries of technetium 99m Cardiolite and subsequently stress SPECT Cardiolite nuclear imaging was obtained in the horizontal long, vertical long, and short axis views. A gated Cardiolite study at peak stress was obtained. The examination was stopped secondary to completion of protocol. Rest and stress SPECT Cardiolite nuclear imaging status post realignment, normalization, and attenuation correction demonstrate no fixed or reversible perfusion defects. There is end systolic thickening and brightening. The gated Cardiolite study demonstrates myocardial thickening and inward wall motion. The reported LVEF is 75%. Impression: 1. Pharmacologic (Regadenoson) evaluation 2. Peak pharmacologic ECG with no ischemic changes. 3. There were no cardiac dysrhythmias pretest, during pharmacologic infusion, or recovery. 5. Rest and stress SPECT Cardiolite nuclear imaging demonstrate relative uniform tracer uptake and myocardial perfusion appearing within normal limits. 6. The gated Cardiolite study reports an LVEF of 75%. This note was generated with [employer] software. It may contain incorrect words, spelling, and punctuation that were not noted in checking the note before signing.
== END | disposition home or self-care (01) ==
LOC: CVS 06:35
PROVIDERS: PCP Nurse Practitioner Family; Referring Provider Internal Medicine Cardiovascular Disease; Visit Provider Internal Medicine Cardiovascular Disease
DX: R06.09 Other forms of dyspnea (principal); R00.2 Palpitations; M35.00 Sjogren syndrome, unspecified; I10 Essential (primary) hypertension; I87.2 Venous insufficiency (chronic) (peripheral); F17.200 Nicotine dependence, unspecified, uncomplicated
CPT/HCPCS: 93306; 78452; 93017; A9500; Q9957; A4216; C8929; J2785

== ENCOUNTER → 2024-01-26 | Outpatient (CLI) | payer MEDICAID, SELFPAY ==
[2024-01-26 10:56] LABS: ALB/GLOB Ratio 0.9 RATIO (0.9-2.4); AST(SGOT) 21 U/L (15-37); Alanine Aminotransfer ALT/SGPT 26 U/L (13-56); Albumin, Serum 3.5 g/dL (3.2-5.0); Alkaline Phosphatase 82 U/L (45-117); Anion Gap 7 (5-15); BUN 8 mg/dL (7-18); BUN/Creat Ratio 10.8 RATIO (10-20); Calcium,Total 9.1 mg/dL (8.5-10.1); Chloride 109 mmol/L (98-107); Cholesterol 215 mg/dL (200); Creatinine, Serum 0.74 mg/dL (0.55-1.02); EST Glomerular Filtration Rate 85 mL/min (>60); Est Glom Filt Rate - Afr Amer 103 mL/min (>60); Globulin 4.1 g/dL (2.2-4.2); Glucose 97 mg/dL (74-106); High Density Lipoprotein 71 mg/dL; Protein, Total 7.6 g/dL (6.4-8.2); Sodium Level 141 mmol/L (136-145); Triglycerides 60 mg/dL; Very Low Density Lipoprotein 12 mg/dL (5-40)
== END | disposition home or self-care (01) ==
LOC: LAB 08:56
PROVIDERS: PCP Nurse Practitioner Family; Referring Provider Internal Medicine Cardiovascular Disease; Visit Provider Internal Medicine Cardiovascular Disease
DX: J44.9 Chronic obstructive pulmonary disease, unspecified (principal); I25.10 Atherosclerotic heart disease of native coronary artery without angina pectoris; R06.09 Other forms of dyspnea; R00.2 Palpitations; I10 Essential (primary) hypertension
CPT/HCPCS: 36415; 80053; 80061